=== PATIENT | male | born 1995 | race Caucasian/White ===

== ENCOUNTER 2022-06-07 09:05 | Emergency (ER) | payer MEDICAID ==
[~2022-06-07] VITALS: Ht 190.5 cm; Wt 113.6 kg
[2022-06-07] MEDS ORDERED: LIDOcaine 5% patch TP STA (10:18)
[2022-06-07] MEDS ORDERED: diazepam inj 5 MG/ML inj. IV ONE (10:20)
[2022-06-07] MEDS ORDERED: ketorolac trometh inj. 60 MG/2 ML VIAL IM ONE (10:20)
[2022-06-07] MEDS ORDERED: diazepam inj 5 MG/ML inj. IM ONE (10:40)
[2022-06-07 11:26] LABS: BASOPHILS % (AUTO) 0.3 % (0-1); EOSINOPHILS % (AUTO) 0.2 % (0-6); HEMATOCRIT 35.9 % (42.0-52.0); HEMOGLOBIN 12.2 g/dl (14.0-17.9); LYMPHOCYTES # (AUTO) 0.9 X10'3 (1.1-4.8); LYMPHOCYTES % (AUTO) 7.9 % (21-51); MEAN CORPUSCULAR HEMOGLOBIN 29.4 PG (27.0-31.0); MEAN CORPUSCULAR HGB CONC 33.9 g/dL (33.0-36.5); MEAN CORPUSCULAR VOLUME 86.7 FL (78-98); MEAN PLATELET VOLUME 7.4 FL (7.4-10.4); MONOCYTES # (AUTO) 1.4 X10'3 (0-0.9); MONOCYTES % (AUTO) 12.1 % (2-12); NEUTROPHILS % (AUTO) 79.5 % (42-75); PLATELET COUNT 297 X10'3 (140-440); RED BLOOD COUNT 4.15 X10'6 (4.70-6.10); RED CELL DISTRIBUTION WIDTH 12.7 % (11.5-14.5); WHITE BLOOD COUNT 11.4 X10'3 (4.5-11.0)
[2022-06-07 11:31] VITALS: BP 147/86
[2022-06-07 11:40] LABS: ALANINE AMINOTRANSFERASE 15 U/L (12-78); ALBUMIN 2.9 G/DL (3.4-5.0); ALBUMIN/GLOBULIN RATIO 0.6 (1.1-1.5); ALKALINE PHOSPHATASE 76 IU/L (46-116); ANION GAP 11 (8-16); ASPARTATE AMINO TRANSFERASE 29 U/L (10-37); BILIRUBIN,TOTAL 0.5 MG/DL (0.1-1.0); BLOOD UREA NITROGEN 6 MG/DL (7-18); BUN/CREATININE RATIO 8.5 (5.4-32.0); CALCIUM 8.9 MG/DL (8.5-10.1); CHLORIDE 99 MMOL/L (99-107); CREATININE 0.71 MG/DL (0.60-1.10); GLUCOSE 98 MG/DL (70-104); POTASSIUM 3.7 MMOL/L (3.5-5.1); SODIUM 135 MMOL/L (135-145); TOTAL CARBON DIOXIDE 25.3 MMOL/L (24-32); TOTAL PROTEIN 7.7 G/DL (6.4-8.2); eGFR > 90 ML/MIN
[2022-06-07] MEDS ORDERED: iohexol 350MG/ML 100ml bottle IV ONE (11:43)
[2022-06-07] MEDS ORDERED: CYCL-1 PO (15:47)
[2022-06-07] MEDS ORDERED: KETO10TA2 PO (15:47)
[2022-06-07] MEDS ORDERED: ACET650T58 PO (15:47)
--- NOTE | 2022-06-07 16:14 | NUR ---
iv dc'd pt being discharged.
== END 2022-06-07 16:15 | disposition home or self-care (01) ==
LOC: ER 09:05
DX: M54.50 Low back pain, unspecified (principal); R19.09 Other intra-abdominal and pelvic swelling, mass and lump
CPT/HCPCS: 36415; 71275; 72131; 74174; 80053; 85025; 96372; 99285; J1885; J3360; J3490; Q9967

== ENCOUNTER 2022-06-21 06:03 | Day surgery (SDC) | payer MEDICAID ==
[2022-06-21] VITALS (12 sets, daily range): BP systolic 127–152; BP diastolic 73–93
[~2022-06-21] VITALS: Ht 190.5 cm; Wt 113.0 kg
[~2022-06-21 06:03] MED LIST: CYCL-1 PO; KETO10TA2 PO
[2022-06-21] MEDS ORDERED: TYL650S RC (06:35)
[2022-06-21] MEDS ORDERED: IBUP-1986 PO (06:35)
[2022-06-21] MEDS ORDERED: CYCL-394 PO (06:37)
[2022-06-21 06:55] LABS: BASOPHILS % (AUTO) 0.4 % (0-1); EOSINOPHILS # (AUTO) 0.1 X10'3 (0-0.9); EOSINOPHILS % (AUTO) 1.7 % (0-6); HEMATOCRIT 34.5 % (42.0-52.0); HEMOGLOBIN 11.8 g/dl (14.0-17.9); LYMPHOCYTES # (AUTO) 1.5 X10'3 (1.1-4.8); LYMPHOCYTES % (AUTO) 18.5 % (21-51); MEAN CORPUSCULAR HEMOGLOBIN 29.7 PG (27.0-31.0); MEAN CORPUSCULAR HGB CONC 34.2 g/dL (33.0-36.5); MEAN CORPUSCULAR VOLUME 86.7 FL (78-98); MEAN PLATELET VOLUME 7.4 FL (7.4-10.4); MONOCYTES % (AUTO) 12.7 % (2-12); NEUTROPHILS # (AUTO) 5.3 X10'3 (1.8-7.7); NEUTROPHILS % (AUTO) 66.7 % (42-75); PLATELET COUNT 443 X10'3 (140-440); RED BLOOD COUNT 3.98 X10'6 (4.70-6.10); RED CELL DISTRIBUTION WIDTH 12.8 % (11.5-14.5); WHITE BLOOD COUNT 7.9 X10'3 (4.5-11.0)
[2022-06-21] MEDS ORDERED: LIDOcaine 1% 30ml preserv. free vial ONE (09:16)
[2022-06-21] MEDS ORDERED: iohexol 300mg/ml 100ml inj. ONE (09:30)
[2022-06-21] MEDS ORDERED: fentaNYL/PF 50MCG/1 ML 2ML syringe ONE (09:33)
[2022-06-21] MEDS ORDERED: midazolam 1 mg/ML 2ml injection ONE (09:33)
[2022-06-21] MEDS ORDERED: diphenhydrAMINE 50 mg/ml inj ONE (10:00)
[2022-06-21] MEDS ORDERED: hydrocortisone 2.5% cream 28.4gm TP ONE (10:05)
== END 2022-06-21 11:30 | disposition home or self-care (01) ==
LOC: SSTAY O 06:03
PROVIDERS: ATTEND Radiology Vascular & Interventional Radiology
DX: R19.00 Intra-abdominal and pelvic swelling, mass and lump, unspecified site (principal); Z79.899 Other long term (current) drug therapy
CPT/HCPCS: 36415; 49180; 77012; 85025; 99152; 99153; J1200; J2250; J3010; J3490; J7030; Q9967; A4615

== ENCOUNTER 2022-08-08 06:04 | Inpatient (IN) | payer MEDICAID ==
[2022-08-08] VITALS (28 sets, daily range): BP systolic 123–166; BP diastolic 80–125
[~2022-08-08] VITALS: Ht 190.5 cm; Wt 116.0 kg
[~2022-08-08 06:04] MED LIST changes: -CYCL-1 PO; +CYCL-394 PO; +IBUP-1986 PO; -KETO10TA2 PO; +TYL650S RC; +ceFAZolin inj. 2,000 MG in dextrose 5%-water 100 ML IV ONE; +famotidine 20mg tablet PO ONE
[2022-08-08] MEDS ORDERED: BUPIVAcaine 0.5% inj/PF 30 ML ONE (06:52)
[2022-08-08] MEDS: ringers solution, lacted 1,000 ML IV SCH ×2 (07:12→14:10)
[2022-08-08 07:19] LABS: BASOPHILS % (AUTO) 0.4 % (0-1); EOSINOPHILS % (AUTO) 0.1 % (0-6); LYMPHOCYTES # (AUTO) 0.7 X10'3 (1.1-4.8); LYMPHOCYTES % (AUTO) 5.5 % (21-51); MEAN CORPUSCULAR HEMOGLOBIN 28.3 PG (27.0-31.0); MEAN CORPUSCULAR HGB CONC 33.8 g/dL (33.0-36.5); MEAN CORPUSCULAR VOLUME 83.8 FL (78-98); MEAN PLATELET VOLUME 8.3 FL (7.4-10.4); MONOCYTES # (AUTO) 1.1 X10'3 (0-0.9); MONOCYTES % (AUTO) 8.6 % (2-12); NEUTROPHILS # (AUTO) 10.8 X10'3 (1.8-7.7); NEUTROPHILS % (AUTO) 85.4 % (42-75); PRE OP HEMATOCRIT 33.1 % (42.0-52.0); PRE OP HEMOGLOBIN 11.2 g/dL (14.0-17.9); PRE OP PLATELET COUNT 208 X10'3 (140-440); RED BLOOD COUNT 3.95 X10'6 (4.70-6.10); RED CELL DISTRIBUTION WIDTH 14.2 % (11.5-14.5)
[2022-08-08 07:42] LABS: ALBUMIN 3.5 G/DL (3.4-5.0); ALBUMIN/GLOBULIN RATIO 0.7 (1.1-1.5); ALKALINE PHOSPHATASE 115 IU/L (46-116); BLOOD UREA NITROGEN 12 MG/DL (7-18); BUN/CREATININE RATIO 9.8 (5.4-32.0); CALCIUM 9.5 MG/DL (8.5-10.1); CHLORIDE 97 MMOL/L (99-107); CREATININE 1.22 MG/DL (0.60-1.10); PRE OP ALT 16 U/L (30-65); PRE OP ANION GAP 13 (8-16); PRE OP AST 74 U/L (10-37); PRE OP BILIRUB, TOTAL 0.9 MG/DL (0.0-1.0); PRE OP GLUCOSE 132 MG/DL (70-104); PRE OP POTASSIUM 3.8 MMOL/L (3.4-5.1); PRE OP SODIUM 134 MMOL/L (135-145); TOTAL CARBON DIOXIDE 23.9 MMOL/L (24-32); TOTAL PROTEIN 8.4 G/DL (6.4-8.2); eGFR 72 ML/MIN
[2022-08-08] MEDS ORDERED: BUPIVAcaine 0.5% inj/PF 30 ml vial IJ ONE (08:03)
[2022-08-08] MEDS ORDERED: ketorolac trometh. 30mg/ml inj. IV ONE (08:20)
[2022-08-08] MEDS ORDERED: meperidine/PF 25mg/ml syringe IV PRN ×3 (08:20)
[2022-08-08] MEDS ORDERED: morphine 2 MG/ML inj. syringe IV PRN (08:20)
[2022-08-08] MEDS ORDERED: labetalol 20mg/4ml (5mg/ml) syringe IV PRN (08:20)
[2022-08-08] MEDS ORDERED: acetaminophen 1,000mg/100ml IV 100 ML IV PRN (08:20)
[2022-08-08] MEDS ORDERED: morphine 4 MG/ML inj SYRINge IV PRN (08:20)
[2022-08-08] MEDS ORDERED: ringers solution, lacted 1,000 ML IV SCH (08:20)
[2022-08-08] MEDS ORDERED: proCHLORperazine 10 MG/2 ml inj IV PRN (08:20)
[2022-08-08] MEDS ORDERED: hydrALAZINE 20mg/ml inj. IV PRN (08:20)
[2022-08-08] MEDS ORDERED: ondansetron/PF 4mg/2ml inj IV PRN ×2 (08:20→14:35)
[2022-08-08] MEDS ORDERED: sevoflurane 250ml liquid IH ONE (09:28)
[2022-08-08] MEDS ORDERED: midazolam 1 mg/ML 2ml injection ONE (09:32)
[2022-08-08] MEDS ORDERED: fentaNYL /PF 50mcg/ml 5ml ampule ONE ×2 (09:32→10:47)
[2022-08-08] MEDS ORDERED: rocuronium 10mg/ml inj IV ONE ×2 (09:52→10:47)
[2022-08-08] MEDS ORDERED: ondansetron/PF 4mg/2ml inj ONE (09:52)
[2022-08-08] MEDS ORDERED: dexamethasone sod phosphate 4mg/ml inj. ONE (09:52)
[2022-08-08] MEDS ORDERED: LIDOcaine 2% (20mg/ml) 5ml vial ONE (09:52)
[2022-08-08] MEDS ORDERED: propofol inj 20 ML IV ONE (09:52)
[2022-08-08] MEDS ORDERED: sugammadex 200mg/2ml injection IV ONE (10:55)
[2022-08-08] MEDS ORDERED: morphine 10mg/ml inj. ONE (11:02)
--- NOTE | 2022-08-08 11:10 | NUR ---
RECEIVED PT FROM OPERATING ROOM IN STABLE CONDITION, REPORT RECEIVED FROM ANTHESIOLOGIST DR QUINTERO. PT IS SLEEPY, 02 AT 10 LITERS VIA MASK. PT HAS A NEW 20 G IN RIGHT AC PER DR QUINTERO, PT IS SWEATY AND LEFT LEG IS SWOLLEN RED, HOT TO TOUCH. DR GUTIERRES CALLED, ORDERS RECEIVED
--- NOTE | 2022-08-08 11:10 | NUR ---
PT DOES NOT HAVE SCD ON LEFT LEG DUE TO SWELLING.
--- NOTE | 2022-08-08 12:09 | NUR ---
ACCOUNTS COLLECTOR AT BEDSIDE, ULTRASOUND PERFORMED
--- NOTE | 2022-08-08 12:20 | NUR ---
DR GUTIERRES NOTIFIED OF DVT, PER MD PATIENT WILL BE ADMITTED FOR MANAGEMENT. HE WILL NOTIFIED HOSPITALIST. NURSING STRETCHING MACHINE OPERATOR NOTIFIED THAT ADMISSION BED IS NEEDED.
[2022-08-08] MEDS ORDERED: acetaminophen 650mg rectal suppository RC PRN (13:05)
--- NOTE | 2022-08-08 13:45 | NUR ---
received report from aircraft launch and recovery technician. awaiting patient arrival.
--- NOTE | 2022-08-08 13:52 | NUR ---
REPORT GIVEN TO RAMON HART, PT TRANSPORTED TO THE FLOOR IN STABLE CONDITION WITH OXYGEN. AWAITING HOSPITALIST
--- NOTE | 2022-08-08 14:00 | NUR ---
patient arrived to the floor. lap x3 glued no drainage noted.
--- NOTE | 2022-08-08 14:30 | NUR ---
Dr. Cornelius and Dr. Heller at bedside
[2022-08-08] MEDS ORDERED: magnesium hydroxide 30ml (MOM) UD suspension PO PRN (14:35)
[2022-08-08] MEDS ORDERED: mag hydrox/Alum hydrox/simeth 30ml oral suspension PO PRN (14:35)
[2022-08-08] MEDS: normal saline 1000ml 1,000 ML IV SCH ×2 (14:35→18:46)
[2022-08-08] MEDS ORDERED: acetaminophen 325mg tablet PO PRN (14:35)
--- NOTE | 2022-08-08 15:45 | NUR ---
PAGER ID: [phone] MESSAGE: [id number] Hang Galdamez: patients last BP 162/108, has been increased since he arrived to the floor. He did receive labetalol 5mg x1 dose in recovery room. would you like any PRNs ordered? thank you! leslie [phone]
[2022-08-08] MEDS ORDERED: heparin 10,000 units/1 ML INJ IV ONE (16:05)
[2022-08-08] MEDS ORDERED: heparin 10,000 units/1 ML INJ IV PRN (16:05)
--- NOTE | 2022-08-08 16:19 | NUR ---
per Dr. Priest heparin gtt cannot start until AFTER 1800.
[2022-08-08] MEDS: hydrALAZINE 20mg/ml inj. IV PRN (16:31)
--- NOTE | 2022-08-08 18:15 | NUR ---
Patient in room [facility]. I have received report from TANNER Pena and had the opportunity to ask questions and assume patient care.
--- NOTE | 2022-08-08 18:19 | NUR ---
Problems reprioritized. Patient report given, questions answered & plan of care reviewed with TANNER Polanco.
[2022-08-08] MEDS: heparin 25,000 UNIT/250ml bag 250 ML IV PRN (18:46)
[2022-08-08] MEDS: cyclobenzaprine 10mg tablet PO SCH (22:18)
[2022-08-08] MEDS: docusate sod 100mg capsule PO SCH (22:19)
[2022-08-08] MEDS: ibuprofen tablet 400 MG TABLET PO SCH (22:19)
[2022-08-09] VITALS (8 sets, daily range): BP systolic 145–175; BP diastolic 98–117
[2022-08-09] MEDS: heparin 25,000 UNIT/250ml bag 250 ML IV PRN ×2 (00:42→06:30)
--- NOTE | 2022-08-09 06:34 | NUR ---
Problems reprioritized. Patient report given, questions answered & plan of care reviewed with TANNER Pena.
[2022-08-09 07:04] LABS: BASOPHILS % (AUTO) 0.2 % (0-1); EOSINOPHILS % (AUTO) 0.1 % (0-6); HEMATOCRIT 30.7 % (42.0-52.0); HEMOGLOBIN 10.1 g/dl (14.0-17.9); LYMPHOCYTES # (AUTO) 1.3 X10'3 (1.1-4.8); LYMPHOCYTES % (AUTO) 10.4 % (21-51); MEAN CORPUSCULAR HEMOGLOBIN 28.1 PG (27.0-31.0); MEAN CORPUSCULAR HGB CONC 32.9 g/dL (33.0-36.5); MEAN CORPUSCULAR VOLUME 85.4 FL (78-98); MEAN PLATELET VOLUME 8.3 FL (7.4-10.4); MONOCYTES # (AUTO) 1.3 X10'3 (0-0.9); MONOCYTES % (AUTO) 9.9 % (2-12); NEUTROPHILS # (AUTO) 10.1 X10'3 (1.8-7.7); NEUTROPHILS % (AUTO) 79.4 % (42-75); PLATELET COUNT 212 X10'3 (140-440); RED BLOOD COUNT 3.59 X10'6 (4.70-6.10); RED CELL DISTRIBUTION WIDTH 14.1 % (11.5-14.5); WHITE BLOOD COUNT 12.8 X10'3 (4.5-11.0)
[2022-08-09] MEDS: ibuprofen tablet 400 MG TABLET PO SCH ×3 (08:00→20:10)
[2022-08-09] MEDS: docusate sod 100mg capsule PO SCH ×2 (08:00→20:09)
[2022-08-09] MEDS: normal saline 1000ml 1,000 ML IV SCH ×2 (10:35→20:12)
[2022-08-09] MEDS ORDERED: FENTANYL CITRATE/PF 50 MCG/1 ML VIAL ONE ×4 (12:04→13:39)
[2022-08-09] MEDS: amLODIPine 5mg tablet PO SCH (12:04)
[2022-08-09] MEDS ORDERED: heparin 1,000 UNITS/NS 500ml 500 ML ONE (12:05)
[2022-08-09] MEDS ORDERED: midazolam 1 mg/ML 2ml injection ONE ×4 (12:05→14:00)
[2022-08-09] MEDS ORDERED: iohexol 300mg/ml 100ml inj. ONE (12:05)
[2022-08-09] MEDS ORDERED: diphenhydrAMINE 50 mg/ml inj ONE (12:28)
[2022-08-09] MEDS ORDERED: heparin 1,000unit/ml 10ml vial 10 ML ONE (13:46)
[2022-08-09] MEDS: hydrALAZINE 20mg/ml inj. IV PRN (15:04)
[2022-08-09] MEDS: morphine 2 MG/ML inj. syringe IV PRN ×2 (15:10→20:11)
--- NOTE | 2022-08-09 16:26 | NUR ---
US at bedside
[2022-08-09] MEDS ORDERED: enoxaparin 60mg/0.6ml syringe SUBCUT ONE (17:37)
[2022-08-09] MEDS: HYDROcodone/acetaminophen 5mg/325mg tablet PO PRN (17:47)
--- NOTE | 2022-08-09 18:27 | NUR ---
Problems reprioritized. Patient report given, questions answered & plan of care reviewed with TANNER Wilson.
[2022-08-09] MEDS: cyclobenzaprine 10mg tablet PO SCH (20:09)
[2022-08-10] VITALS (18 sets, daily range): BP systolic 129–199; BP diastolic 91–115
[2022-08-10] MEDS: normal saline 1000ml 1,000 ML IV SCH ×3 (00:08→18:58)
[2022-08-10] MEDS: morphine 2 MG/ML inj. syringe IV PRN ×3 (00:08→11:31)
[2022-08-10] MEDS: hydrALAZINE 20mg/ml inj. IV PRN ×2 (05:45→12:59)
--- NOTE | 2022-08-10 05:45 | NUR ---
Pt has BP 160/101, HR 89. Hydralazine given as ordered. Addendum: 08/10/22 at 0555 by Katie Licona RN Amended: Links added.
[2022-08-10] MEDS: HYDROcodone/acetaminophen 5mg/325mg tablet PO PRN ×3 (06:28→17:40)
[2022-08-10] MEDS: ibuprofen tablet 400 MG TABLET PO SCH ×3 (06:30→20:19)
[2022-08-10] MEDS: amLODIPine 5mg tablet PO SCH (06:31)
[2022-08-10 06:59] LABS: BASOPHILS % (AUTO) 0.3 % (0-1); EOSINOPHILS % (AUTO) 0.2 % (0-6); HEMATOCRIT 31.7 % (42.0-52.0); HEMOGLOBIN 10.5 g/dl (14.0-17.9); LYMPHOCYTES # (AUTO) 0.9 X10'3 (1.1-4.8); LYMPHOCYTES % (AUTO) 7.5 % (21-51); MEAN CORPUSCULAR HGB CONC 33.1 g/dL (33.0-36.5); MEAN CORPUSCULAR VOLUME 84.7 FL (78-98); MEAN PLATELET VOLUME 8.3 FL (7.4-10.4); MONOCYTES # (AUTO) 1.3 X10'3 (0-0.9); MONOCYTES % (AUTO) 11.4 % (2-12); NEUTROPHILS # (AUTO) 9.4 X10'3 (1.8-7.7); NEUTROPHILS % (AUTO) 80.6 % (42-75); PLATELET COUNT 235 X10'3 (140-440); RED BLOOD COUNT 3.74 X10'6 (4.70-6.10); RED CELL DISTRIBUTION WIDTH 13.9 % (11.5-14.5); WHITE BLOOD COUNT 11.6 X10'3 (4.5-11.0)
[2022-08-10 07:13] LABS: ANION GAP 12 (8-16); BLOOD UREA NITROGEN 13 MG/DL (7-18); BUN/CREATININE RATIO 12.5 (5.4-32.0); CALCIUM 8.6 MG/DL (8.5-10.1); CHLORIDE 99 MMOL/L (99-107); CREATININE 1.04 MG/DL (0.60-1.10); GLUCOSE 89 MG/DL (70-104); POTASSIUM 3.7 MMOL/L (3.5-5.1); SODIUM 133 MMOL/L (135-145); TOTAL CARBON DIOXIDE 22.3 MMOL/L (24-32); eGFR 86 ML/MIN
[2022-08-10] MEDS: docusate sod 100mg capsule PO SCH ×2 (08:00→20:19)
[2022-08-10] MEDS ORDERED: LIDOcaine 1% 30ml preserv. free vial ONE (09:31)
[2022-08-10] MEDS ORDERED: heparin sodium, porcine/PF 100unit/ml 5ML syringe ONE (09:31)
[2022-08-10] MEDS ORDERED: FENTANYL CITRATE/PF 50 MCG/1 ML VIAL ONE ×2 (09:31→10:19)
[2022-08-10] MEDS ORDERED: midazolam 1 mg/ML 2ml injection ONE (09:31)
[2022-08-10] MEDS ORDERED: ENOX40SY7 SQ (11:03)
[2022-08-10] MEDS ORDERED: NOR5T PO (11:03)
[2022-08-10] MEDS ORDERED: LORazepam 2 mg/ml vial IV ONE (11:35)
[2022-08-10] MEDS ORDERED: enalaprilat dihydrate 2.5mg/2ml vial IV ONE (11:35)
--- NOTE | 2022-08-10 12:40 | NUR ---
PAGER ID: [phone] MESSAGE: [id number] Hang Mcgrath: patient has to be monitored during and for 30 minutes after Vasotec IVP. would you like the temp monitoring or a 24hr tele? thanks, leslie [phone]
[2022-08-10] MEDS ORDERED: enoxaparin 50mg/0.5ml (from 3ml vial) syringe SUBCUT ONE ×3 (14:00)
[2022-08-10] MEDS: carvedilol 6.25mg tablet PO SCH ×2 (14:27→20:19)
--- NOTE | 2022-08-10 17:00 | NUR ---
spoke with MD on the phone. aware patient was not being discharged today
--- NOTE | 2022-08-10 18:11 | NUR ---
Problems reprioritized. Patient report given, questions answered & plan of care reviewed with TANNER Wilson.
[2022-08-10] MEDS: cyclobenzaprine 10mg tablet PO SCH (20:19)
[2022-08-11] MEDS: HYDROcodone/acetaminophen 5mg/325mg tablet PO PRN ×3 (02:47→12:16)
[2022-08-11] MEDS: normal saline 1000ml 1,000 ML IV SCH (02:47)
[2022-08-11 04:53] LABS: BASOPHILS % (AUTO) 0.3 % (0-1); EOSINOPHILS % (AUTO) 0.4 % (0-6); HEMATOCRIT 29.6 % (42.0-52.0); LYMPHOCYTES # (AUTO) 0.9 X10'3 (1.1-4.8); LYMPHOCYTES % (AUTO) 8.4 % (21-51); MEAN CORPUSCULAR HEMOGLOBIN 28.7 PG (27.0-31.0); MEAN CORPUSCULAR HGB CONC 33.8 g/dL (33.0-36.5); MEAN CORPUSCULAR VOLUME 85.1 FL (78-98); MEAN PLATELET VOLUME 8.5 FL (7.4-10.4); MONOCYTES # (AUTO) 1.4 X10'3 (0-0.9); MONOCYTES % (AUTO) 12.6 % (2-12); NEUTROPHILS # (AUTO) 8.5 X10'3 (1.8-7.7); NEUTROPHILS % (AUTO) 78.3 % (42-75); PLATELET COUNT 253 X10'3 (140-440); RED BLOOD COUNT 3.47 X10'6 (4.70-6.10); RED CELL DISTRIBUTION WIDTH 14.3 % (11.5-14.5); WHITE BLOOD COUNT 10.8 X10'3 (4.5-11.0)
[2022-08-11 06:00] VITALS: BP 143/87
--- NOTE | 2022-08-11 06:35 | NUR ---
Problems reprioritized. Patient report given, questions answered & plan of care reviewed with DA HART. Addendum: 08/11/22 at 0635 by Katie Licona RN Amended: Links added.
[2022-08-11] MEDS ORDERED: enoxaparin 100mg/ml syringe SUBCUT SCH (08:00)
[2022-08-11] MEDS: docusate sod 100mg capsule PO SCH (08:00)
[2022-08-11] MEDS: ibuprofen tablet 400 MG TABLET PO SCH ×2 (08:03→12:15)
[2022-08-11] MEDS: carvedilol 6.25mg tablet PO SCH (08:03)
[2022-08-11] MEDS: amLODIPine 5mg tablet PO SCH (08:04)
[2022-08-11] MEDS ORDERED: CARV-49 PO (09:53)
[2022-08-11 10:00] VITALS: BP 134/88
[2022-08-11] MEDS ORDERED: HYDR-3965 PO (11:29)
--- NOTE | 2022-08-11 14:20 | NUR ---
patient discharged in stable condition to home. ivs removed tip intact no complications. belongings sent with pt. pt educated on importance of follow up with oncologist and medication compliance.
== END 2022-08-11 14:20 | disposition home health service (06) | DRG 182 ==
LOC: PAS 06:04 → SUR 3N 13:55 → PAS 14:35 → SUR 3N 14:37
PROVIDERS: ADMIT Family Medicine; ATTEND Surgery
PROC: 0WBH4ZX Excision of Retroperitoneum, Percutaneous Endoscopic Approach, Diagnostic (ICD-10-PCS; 2022-08-08)
PROC: 06CY3ZZ Extirpation of Matter from Lower Vein, Percutaneous Approach (ICD-10-PCS; principal; 2022-08-09)
PROC: 06CN3ZZ Extirpation of Matter from Left Femoral Vein, Percutaneous Approach (ICD-10-PCS; 2022-08-09)
PROC: B51C1ZZ Fluoroscopy of Left Lower Extremity Veins using Low Osmolar Contrast (ICD-10-PCS; 2022-08-09)
PROC: B5191ZZ Fluoroscopy of Inferior Vena Cava using Low Osmolar Contrast (ICD-10-PCS; 2022-08-09)
PROC: 0JH63XZ Insertion of Tunneled Vascular Access Device into Chest Subcutaneous Tissue and Fascia, Percutaneous Approach (ICD-10-PCS; 2022-08-10)
PROC: 02HV33Z Insertion of Infusion Device into Superior Vena Cava, Percutaneous Approach (ICD-10-PCS; 2022-08-10)
PROC: B548ZZA Ultrasonography of Superior Vena Cava, Guidance (ICD-10-PCS; 2022-08-10)
PROC: B5181ZA Fluoroscopy of Superior Vena Cava using Low Osmolar Contrast, Guidance (ICD-10-PCS; 2022-08-10)
DX: I82.412 Acute embolism and thrombosis of left femoral vein (principal); N17.0 Acute kidney failure with tubular necrosis; I82.422 Acute embolism and thrombosis of left iliac vein; C62.90 Malignant neoplasm of unspecified testis, unspecified whether descended or undescended; F12.90 Cannabis use, unspecified, uncomplicated; R59.0 Localized enlarged lymph nodes; F17.210 Nicotine dependence, cigarettes, uncomplicated; I10 Essential (primary) hypertension; I82.432 Acute embolism and thrombosis of left popliteal vein; I87.1 Compression of vein; E66.9 Obesity, unspecified; M25.473 Effusion, unspecified ankle; M54.9 Dorsalgia, unspecified; Z68.32 Body mass index [BMI] 32.0-32.9, adult; Z79.899 Other long term (current) drug therapy
CPT/HCPCS: 36005; 36415; 36561; 37187; 75820; 76870; 76937; 77001; 80048; 80053; 82103; 83615; 85025; 85347; 85730; 93971; 93976; 97116; 97161; 97530; 99152; 99153; A4215; A4615; A4618; A4620; A6258; A6449; A7000; C1725; C1757; C1769; C1788; C1887; C1894; G0378; J0131; J0360; J0690; J1100; J1200; J1642; J1644; J1650; J2060; J2250; J2270; J2274; J2405; J2704; J3010; J3490; J7030; J7060; J7120; Q9967; S0020